=== PATIENT | male | born 1995 | race Caucasian/White ===

== ENCOUNTER 2018-11-11 21:52 | Emergency (ER) | payer OTHER ==
[~2018-11-11] VITALS: Ht 180.3 cm; Wt 69.4 kg
== END 2018-11-12 02:13 | disposition home or self-care (01) ==
LOC: ER 21:52
DX: S61.216A Laceration without foreign body of right little finger without damage to nail, initial encounter (principal); W26.8XXA Contact with other sharp object(s), not elsewhere classified, initial encounter; Y99.0 Civilian activity done for income or pay